=== PATIENT | male | born 1965 | race Caucasian/White ===

== ENCOUNTER → 2023-03-14 15:12 | Outpatient (CLI) | payer OTHER, SELFPAY ==
[2023-03-14 15:40] VITALS: PULSE 78; PULSE 82
--- NOTE | 2023-03-14 16:09 | XR_ITS ---
FINAL REPORT CLINICAL HISTORY: [facility], [facility] FINDINGS: 2 views of the chest were obtained . The heart is normal in size. The mediastinum is within normal limits. There is mild bibasilar atelectasis or scarring. There is no pneumothorax. Osseous structures demonstrate moderate degenerative changes of the thoracic spine. IMPRESSION: Mild bibasilar atelectasis or scarring. Reviewed, Interpreted and Dictated by Henrry Sorto III, MD Transcribed by Gabriela Dwyer Authenticated and [facility]
== END ==
PROVIDERS: PCP Chiropractor; Visit Provider Chiropractor
DX: J98.3 Compensatory emphysema (principal)
CPT/HCPCS: 71046; 94060; 94640